=== PATIENT | female | born 1955 | race Caucasian/White ===

== ENCOUNTER 2017-06-12 02:45 | Emergency (ER) | payer SELFPAY ==
--- NOTE | 2017-06-12 02:53 | PDOC ---
History of Present Illness - General Chief Complaint: Alcohol intoxication Stated Complaint: INTOX Time Seen by Provider: 06/12/17 02:50 History Source: Patient - History of Present Illness Initial Comments: 06/12/17 03:12 61 year old female bibdewey c/o drinking vodka and falling on her back. no head injury. " i called ambulance because i think i have a problem." patient reports drinking every day since February since her . denies suicidal ideation/ homicidal ideation. Past History - Past Medical History Allergies/Adverse Reactions: Allergies Allergy/AdvReac Type Severity Reaction Status Date / Time No Known Allergies Allergy Verified 06/12/17 03:03 Home Medications: Ambulatory Orders Lisinopril [Prinivil] 10 mg PO DAILY 06/12/17 HTN: Yes Review of Systems - Review of Systems Able to Perform ROS?: Yes Is the patient limited [place] proficient: No Constitutional: No: Symptoms Reported, See HPI, Chills, Diaphoresis, Fever, Loss of Appetite, Malaise, Night Sweats, Weakness, Weight Stable, Unintentional Wgt. Loss, Unexplained wgt Loss, Other Psychiatric: Yes: Stressors *Physical Exam - Vital Signs 06/12/17 03:15 Last Vital Signs Temp Pulse Resp BP Pulse Ox 97.9 F 106 H 20 144/86 98 06/12/17 02:59 06/12/17 02:59 06/12/17 02:59 06/12/17 02:59 06/12/17 02:59 - Physical Exam General Appearance: Yes: Appropriately Dressed, Disheveled, Alcohol on Breath Cardiovascular: positive: Tachycardia Gastrointestinal/Abdominal: positive: Normal Bowel Sounds, Soft Extremity: positive: Other (unsteady gait) Neurologic: positive: Alert, Other (normocephalic) ED Treatment Course - LABORATORY CBC & Chemistry Diagram: 06/12/17 03:00 06/12/17 03:00 Medical Decision Making - Medical Decision Making 06/12/17 03:17 A: alcohol intoxication P: cbc cmp alcohol level urine tox IVF await sobriety prior to discharge. patient is refusing detox and rehab at this time 06/12/17 05:54 ALCOHOL LEVEL 297. PATIENT IS WITH UNSTEADY GAIT. REQUESTING TO GO HOME. WILL MONITOR FOR FURTHER SOBRIETY PRIOR TO DISCHARGE. *DC/Admit/Observation/Transfer Diagnosis at time of Disposition: Grief Alcohol intoxication Qualifiers: Complication of substance-induced condition: uncomplicated Qualified Code(s): F10.920 - Alcohol use, unspecified with intoxication, uncomplicated Fall Qualifiers: Encounter type: initial encounter Qualified Code(s): W19.XXXA - Unspecified fall, initial encounter - Discharge Dispostion Disposition: HOME Condition at time of disposition: Improved - Patient Instructions Printed Discharge Instructions: DI for Alcohol Abuse Additional Instructions: Please follow-up with your PMD for possible referral to a therapist to deal with your grief.
[2017-06-12 03:01] VITALS: BMI 38.2
[2017-06-12] MEDS ORDERED: FOLIC ACID INJECTION - 1 MG, THIAMINE HCL 100 MG, MULTIVIT INJECTION ADULT 10 ML in SOD... IVPB ONE (03:15)
--- NOTE | 2017-06-12 03:24 | PDOC ---
*Physical Exam - Vital Signs Last Vital Signs Temp Pulse Resp BP Pulse Ox 97.9 F 106 H 20 144/86 98 06/12/17 02:59 06/12/17 02:59 06/12/17 02:59 06/12/17 02:59 06/12/17 02:59 ED Treatment Course - LABORATORY CBC & Chemistry Diagram: 06/12/17 03:00 06/12/17 03:00 Medical Decision Making - Medical Decision Making 06/12/17 03:24 agree with care from LAURA Peterson *DC/Admit/Observation/Transfer Diagnosis at time of Disposition: Alcohol intoxication, Grief, Fall - Discharge Dispostion Disposition: HOME Condition at time of disposition: Improved - Patient Instructions Printed Discharge Instructions: DI for Alcohol Abuse Additional Instructions: Please follow-up with your PMD for possible referral to a therapist to deal with your grief.
[2017-06-12 03:43] LABS: BASOPHIL 1.1 % (0-2.0); EOSINOPHIL 3.3 % (0-4.5); MCH 36.1 pg (25.7-33.7); MCHC 34.4 g/dl (32.0-36.0); MEAN CELL VOLUME 104.8 fl (80-96); MEAN PLT VOLUME 10.2 fl (7.5-11.1); NEUTROPHILS 44.4 % (42.8-82.8); PLATELET COUNT 131 K/MM3 (134-434); RDW 12.7 % (11.6-15.6); WHITE BLOOD COUNT 6.8 K/mm3 (4.0-10.0)
[2017-06-12 04:24] LABS: URINE MARIJUANA THC NEGATIVE ng/ml (CUTOFF=50)
[2017-06-12 04:40] LABS: ALBUMIN 3.6 g/dl (3.4-5.0); ALK PHOS 68 U/L (45-117); ANION GAP 14 (8-16); BILIRUBIN,TOTAL 0.3 mg/dL (0.2-1.0); CALCIUM 9.2 mg/dL (8.5-10.1); CO2 21 mmol/L (21-32); CREATININE 1.9 mg/dL (0.55-1.02); GLUCOSE,RANDOM 101 mg/dL (74-106); SGOT/AST 47 U/L (15-37); SGPT/ALT 53 U/L (12-78); TOT PROT 7.7 g/dl (6.4-8.2)
--- NOTE | 2017-06-12 07:51 | PDOC ---
*Physical Exam - Vital Signs Last Vital Signs Temp Pulse Resp BP Pulse Ox 97.9 F 106 H 20 144/86 98 06/12/17 02:59 06/12/17 02:59 06/12/17 02:59 06/12/17 02:59 06/12/17 02:59 ED Treatment Course - LABORATORY CBC & Chemistry Diagram: 06/12/17 03:00 06/12/17 03:00 - ADDITIONAL ORDERS Additional order review: Laboratory Results 06/12/17 06/12/17 06/12/17 03:30 03:00 03:00 Sodium 143 Potassium 3.8 Chloride 108 H Carbon Dioxide 21 Anion Gap 14 BUN 23 H Creatinine 1.9 H Creat Clearance w eGFR 26.87 Random Glucose 101 Calcium 9.2 Total Bilirubin 0.3 AST 47 H ALT 53 Alkaline Phosphatase 68 Total Protein 7.7 Albumin 3.6 Opiates Screen Negative Methadone Screen Negative Barbiturate Screen Negative Phencyclidine Screen Negative Ur Amphetamines Screen Negative MDMA (Ecstasy) Screen Negative Benzodiazepines Screen Positive Cocaine Screen Negative U Marijuana (THC) Screen Negative Alcohol, Quantitative 291.9 H* 06/12/17 03:00 RBC 3.54 L MCV 104.8 H MCHC 34.4 RDW 12.7 MPV 10.2 Neutrophils % 44.4 Lymphocytes % 42.4 H Monocytes % 8.8 Eosinophils % 3.3 Basophils % 1.1 Medical Decision Making - Medical Decision Making 06/12/17 07:46 Pt signed out to me at 7am 61-year-old female, denies any past medical history here with fall and setting off acute alcohol intoxication. Patient states she started drinking daily since several months ago. Adamant that she did not hit her head and declines head CT in ED. Patient offered detox, but also declines at this time. States she is aware that she is coping badly. Patient aware that she can follow up with a therapist or joint a support group for grieving. Patient stable on my eval now and noes not appear intoxicated at this time. No slurred speech and able to ambulate without difficulty. Pt requesting discharge and does not wish to speak to community manager or SW. Pt denies SI/HI 06/12/17 07:50 06/12/17 07:56 *DC/Admit/Observation/Transfer Diagnosis at time of Disposition: Grief Alcohol intoxication Qualifiers: Complication of substance-induced condition: uncomplicated Qualified Code(s): F10.920 - Alcohol use, unspecified with intoxication, uncomplicated; F10.920 - Alcohol use, unspecified with intoxication, uncomplicated; F10.920 - Alcohol use , unspecified with intoxication, uncomplicated Fall Qualifiers: Encounter type: initial encounter Qualified Code(s): W19.XXXA - Unspecified fall, initial encounter; W19.XXXA - Unspecified fall, initial encounter - Discharge Dispostion Disposition: HOME Condition at time of disposition: Improved - Patient Instructions Additional Instructions: Please follow-up with your PMD for possible referral to a therapist to deal with your grief.
[2017-06-12 07:54] VITALS: BP 130/102; PULSE 95; TEMP 97.8
== END 2017-06-12 08:01 | disposition home or self-care (01) ==
LOC: JER 02:45
PROC: 3E033GC Introduction of Other Therapeutic Substance into Peripheral Vein, Percutaneous Approach (ICD-10-PCS; principal; 2017-06-12)
DX: F43.29 Adjustment disorder with other symptoms (principal); Z63.4 Disappearance and death of family member; W18.39XA Other fall on same level, initial encounter; Y93.89 Activity, other specified; Y92.038 Other place in apartment as the place of occurrence of the external cause
CPT/HCPCS: 36415; 80053; 80307; 85025; 99282-25